=== PATIENT | male | born 1975 | race Caucasian/White ===

== ENCOUNTER 2018-02-01 09:04 | Emergency (ER) | payer MEDICAID ==
[~2018-02-01] VITALS: Ht 190.5 cm; Wt 180.0 kg
[2018-02-01] MEDS ORDERED: CLIN300C85 PO (10:02)
[2018-02-01] MEDS ORDERED: ibuprofen tablet 400 MG TABLET PO ONE (10:10)
[2018-02-01 10:18] VITALS: BP 124/78
== END 2018-02-01 10:20 | disposition home or self-care (01) ==
LOC: ER 09:05
DX: L02.415 Cutaneous abscess of right lower limb (principal); F12.90 Cannabis use, unspecified, uncomplicated; F15.90 Other stimulant use, unspecified, uncomplicated; Z88.8 Allergy status to other drugs, medicaments and biological substances; Z59.0 Homelessness
CPT/HCPCS: 99284

== ENCOUNTER 2018-09-11 12:23 | Emergency (ER) | payer MEDICAID ==
[~2018-09-11] VITALS: Ht 190.5 cm; Wt 75.6 kg
[~2018-09-11 12:23] MED LIST: CLIN-96 PO
[2018-09-11 12:58] VITALS: BP 128/79
== END 2018-09-11 14:09 | disposition home or self-care (01) ==
LOC: ER 12:23
DX: R00.0 Tachycardia, unspecified (principal); F12.90 Cannabis use, unspecified, uncomplicated; F15.90 Other stimulant use, unspecified, uncomplicated; Z00.00 Encounter for general adult medical examination without abnormal findings; Z86.19 Personal history of other infectious and parasitic diseases; Z59.0 Homelessness; Z88.8 Allergy status to other drugs, medicaments and biological substances; Z79.899 Other long term (current) drug therapy
CPT/HCPCS: 99281

== ENCOUNTER 2019-11-07 02:31 | Emergency (ER) | payer MEDICAID ==
[~2019-11-07] VITALS: Ht 190.5 cm; Wt 90.9 kg
[~2019-11-07 02:31] MED LIST changes: -CLIN-96 PO; +CLIN-97 PO
[2019-11-07] MEDS ORDERED: normal saline 1000ML IV soln IV ONE (03:40)
[2019-11-07] MEDS ORDERED: clindamycin phosphate inj 600 MG in normal saline 50ml IV soln 50 ML IV ONE (03:50)
[2019-11-07] MEDS ORDERED: clindamycin 600mg/D5W 50ml 50 ML IV ONE (03:55)
[2019-11-07 04:35] LABS: BASOPHILS # (AUTO) 0.1 X10'3 (0-0.2); BASOPHILS % (AUTO) 0.8 % (0-1); EOSINOPHILS # (AUTO) 0.4 X10'3 (0-0.9); EOSINOPHILS % (AUTO) 3.5 % (0-6); HEMATOCRIT 41.5 % (42.0-52.0); HEMOGLOBIN 14.1 g/dl (14.0-17.9); LYMPHOCYTES # (AUTO) 2.4 X10'3 (1.1-4.8); LYMPHOCYTES % (AUTO) 19.6 % (21-51); MEAN CORPUSCULAR HGB CONC 33.9 g/dL (33.0-36.5); MEAN CORPUSCULAR VOLUME 94.2 FL (78-98); MEAN PLATELET VOLUME 8.1 FL (7.4-10.4); MONOCYTES # (AUTO) 1.6 X10'3 (0-0.9); MONOCYTES % (AUTO) 13.1 % (2-12); NEUTROPHILS # (AUTO) 7.9 X10'3 (1.8-7.7); PLATELET COUNT 286 X10'3 (140-440); RED BLOOD COUNT 4.41 X10'6 (4.70-6.10); RED CELL DISTRIBUTION WIDTH 14.1 % (11.5-14.5); WHITE BLOOD COUNT 12.5 X10'3 (4.5-11.0)
[2019-11-07 05:06] LABS: ALANINE AMINOTRANSFERASE 153 U/L (12-78); ALBUMIN 3.5 G/DL (3.4-5.0); ALBUMIN/GLOBULIN RATIO 0.9 (1.1-1.5); ALKALINE PHOSPHATASE 87 IU/L (46-116); ANION GAP 10 (8-16); ASPARTATE AMINO TRANSFERASE 50 U/L (10-37); BILIRUBIN,TOTAL 0.5 MG/DL (0.1-1.0); BLOOD UREA NITROGEN 13 MG/DL (7-18); CALCIUM 9.1 MG/DL (8.5-10.1); CHLORIDE 102 MMOL/L (99-107); CREATININE 1.18 MG/DL (0.60-1.10); GLUCOSE 92 MG/DL (70-104); MAGNESIUM 2.1 MG/DL (1.5-2.4); POTASSIUM 4.3 MMOL/L (3.5-5.1); SODIUM 136 MMOL/L (135-145); TOTAL CARBON DIOXIDE 23.7 MMOL/L (24-32); TOTAL PROTEIN 7.6 G/DL (6.4-8.2); eGFR 67 ML/MIN
[2019-11-07 05:22] LABS: CLARITY,URINE CLEAR (Clear); COLOR,URINE AMBER (Yellow); GLUCOSE, URINE NEGATIVE (Neg); KETONES,URINE NEGATIVE (Neg); LEUKOCYTE ESTERASE ,URINE NEGATIVE (Neg); NITRITES, URINE NEGATIVE (Neg); OCCULT BLOOD,URINE NEGATIVE (Neg); PROTEIN,URINE NEGATIVE (Neg)
[2019-11-07 05:24] LABS: UA COLLECTION TYPE URINAL
[2019-11-07 05:32] LABS: URINE AMPHETAMINE SCREEN POSITIVE (Neg); URINE BARBITUATE SCREEN NEGATIVE (Neg); URINE BENZODIAZEPINES SCREEN NEGATIVE (Neg); URINE CANNABINOID SCREEN POSITIVE (Neg); URINE COCAINE SCREEN NEGATIVE (Neg); URINE METHADONE SCREEN NEGATIVE (Neg); URINE OPIATE SCREEN NEGATIVE (Neg); URINE PHENCYCLIDINE SCREEN NEGATIVE (Neg)
[2019-11-07] MEDS ORDERED: CLIN150C8 PO (05:57)
[2019-11-07 06:02] VITALS: BP 111/80
[2019-11-07] MEDS ORDERED: LIDOcaine 1% W/epiNEPHrine 1:100,000 20ml vial ONE (08:00)
== END 2019-11-07 06:15 | disposition home or self-care (01) ==
LOC: ER 02:32
DX: L02.414 Cutaneous abscess of left upper limb (principal); M79.89 Other specified soft tissue disorders; F32.9 Major depressive disorder, single episode, unspecified; F20.9 Schizophrenia, unspecified; F17.200 Nicotine dependence, unspecified, uncomplicated; F12.90 Cannabis use, unspecified, uncomplicated; F15.90 Other stimulant use, unspecified, uncomplicated; Z86.19 Personal history of other infectious and parasitic diseases; Z72.89 Other problems related to lifestyle; Z59.0 Homelessness; Z88.8 Allergy status to other drugs, medicaments and biological substances; Z79.2 Long term (current) use of antibiotics
CPT/HCPCS: 10060; 36415; 80053; 80305; 81003; 83605; 83735; 84145; 85025; 87040; 96365; 99284; J7030; J3490

== ENCOUNTER → 2020-03-06 | Emergency (ER) | payer MEDICAID ==
[~2020-03-06] VITALS: Ht 190.5 cm; Wt 90.9 kg
[~2020-03-06] MED LIST changes: +CLIN150C8 PO
[2020-03-06 21:47] VITALS: BP 98/62
--- NOTE | 2020-03-06 22:02 | NUR ---
PT HAS A BOTTLE OF BOOZE WITH HIM. PT ADVISED THAT HE NEEDS TO LEAVE HIS BOOZE OUTSIDE. HE SAID "OK I'LL BE RIGHT BACK" BUT DIDN'T RETURN.
== END | disposition left against medical advice (07) ==
LOC: ER 21:29
DX: R05 Cough (principal); R09.89 Other specified symptoms and signs involving the circulatory and respiratory systems; Z53.21 Procedure and treatment not carried out due to patient leaving prior to being seen by health care provider

== ENCOUNTER 2020-03-15 15:50 | Outpatient (CLI) | payer MEDICAID | END 2020-03-15 23:59 | disposition home or self-care (01) | LOC: RAD 15:50 | DX: Z79.899 Other long term (current) drug therapy (principal) | CPT/HCPCS: 93005 ==

== ENCOUNTER 2020-03-30 06:49 | Emergency (ER) | payer MEDICAID ==
[~2020-03-30] VITALS: Ht 190.5 cm; Wt 90.9 kg
== END 2020-03-30 07:41 | disposition home or self-care (01) ==
LOC: ER 06:49
DX: J06.9 Acute upper respiratory infection, unspecified (principal); R05 Cough; R09.89 Other specified symptoms and signs involving the circulatory and respiratory systems; R06.02 Shortness of breath; Z20.828 Contact with and (suspected) exposure to other viral communicable diseases; F32.9 Major depressive disorder, single episode, unspecified; F20.9 Schizophrenia, unspecified; F12.90 Cannabis use, unspecified, uncomplicated; F15.90 Other stimulant use, unspecified, uncomplicated; Z86.19 Personal history of other infectious and parasitic diseases; Z72.89 Other problems related to lifestyle; Z59.0 Homelessness; Z88.8 Allergy status to other drugs, medicaments and biological substances; Z79.2 Long term (current) use of antibiotics
CPT/HCPCS: 36415; 87635; 99283

== ENCOUNTER 2020-10-27 20:31 | Emergency (ER) | payer MEDICAID ==
[~2020-10-27] VITALS: Ht 182.9 cm; Wt 90.9 kg
[2020-10-27] MEDS ORDERED: normal saline 1000ML IV soln IVB ONE (20:40)
[2020-10-27 20:54] LABS: BASOPHILS # (AUTO) 0.1 X10'3 (0-0.2); BASOPHILS % (AUTO) 1.4 % (0-1); EOSINOPHILS # (AUTO) 0.7 X10'3 (0-0.9); EOSINOPHILS % (AUTO) 7.4 % (0-6); HEMATOCRIT 46.7 % (42.0-52.0); HEMOGLOBIN 15.8 g/dl (14.0-17.9); LYMPHOCYTES # (AUTO) 3.9 X10'3 (1.1-4.8); LYMPHOCYTES % (AUTO) 42.7 % (21-51); MEAN CORPUSCULAR HEMOGLOBIN 32.2 PG (27.0-31.0); MEAN CORPUSCULAR HGB CONC 33.8 g/dL (33.0-36.5); MEAN CORPUSCULAR VOLUME 95.3 FL (78-98); MEAN PLATELET VOLUME 7.6 FL (7.4-10.4); MONOCYTES # (AUTO) 0.6 X10'3 (0-0.9); NEUTROPHILS # (AUTO) 3.8 X10'3 (1.8-7.7); NEUTROPHILS % (AUTO) 41.5 % (42-75); PLATELET COUNT 354 X10'3 (140-440); RED CELL DISTRIBUTION WIDTH 13.4 % (11.5-14.5); WHITE BLOOD COUNT 9.1 X10'3 (4.5-11.0)
[2020-10-27 21:05] LABS: ALANINE AMINOTRANSFERASE 108 U/L (12-78); ALBUMIN 3.8 G/DL (3.4-5.0); ALBUMIN/GLOBULIN RATIO 0.9 (1.1-1.5); ALKALINE PHOSPHATASE 80 IU/L (46-116); ANION GAP 18 (8-16); ASPARTATE AMINO TRANSFERASE 62 U/L (10-37); BILIRUBIN,TOTAL 0.4 MG/DL (0.1-1.0); BLOOD UREA NITROGEN 13 MG/DL (7-18); BUN/CREATININE RATIO 7.6 (5.4-32.0); CALCIUM 8.5 MG/DL (8.5-10.1); CHLORIDE 103 MMOL/L (99-107); CREATININE 1.72 MG/DL (0.60-1.10); GLUCOSE 307 MG/DL (70-104); POTASSIUM 3.7 MMOL/L (3.5-5.1); SODIUM 141 MMOL/L (135-145); TOTAL CARBON DIOXIDE 19.9 MMOL/L (24-32); TOTAL PROTEIN 7.9 G/DL (6.4-8.2); eGFR 43 ML/MIN
[2020-10-27 21:17] LABS: CKMB RELATIVE INDEX 1.8 RATIO (0-2.5); CREATINE KINASE 290 U/L (39-308); ETHANOL < 0.010 GM/DL (0.0-0.010); TROPONIN I < 0.04 NG/ML (0.0-0.05)
[2020-10-27 21:28] LABS: LACTIC SEPSIS 5.9 MMOL/L (0.4-2.0)
[2020-10-27] MEDS ORDERED: normal saline 1000ML IV soln IV ONE (21:30)
[2020-10-27 22:09] LABS: HEMOGLOBIN A1C 5.6 % (4.5-6.2)
--- NOTE | 2020-10-27 23:31 | NUR ---
sats dropping to 87% - sternal rub elicits minimal response. RR down to 8 - MD aware and order for 2mg Narcan IV ordered.
[2020-10-27] MEDS ORDERED: naloxone 2mg/2ml inj ONE (23:34)
[2020-10-27 23:51] LABS: CLARITY,URINE CLEAR (Clear); COLOR,URINE YELLOW (Yellow); GLUCOSE, URINE NEGATIVE (Neg); KETONES,URINE NEGATIVE (Neg); LEUKOCYTE ESTERASE ,URINE NEGATIVE (Neg); NITRITES, URINE NEGATIVE (Neg); OCCULT BLOOD,URINE NEGATIVE (Neg); PROTEIN,URINE 30 mg/dl (Neg)
[2020-10-28 00:04] LABS: UA COLLECTION TYPE URINAL
[2020-10-28 00:06] LABS: RBC,URINE NONE SEEN /HPF (0-2); WBC,URINE NONE SEEN /HPF (0-4)
[2020-10-28 00:07] LABS: BACTERIA,URINE NONE SEEN /HPF (Neg); HYALINE CASTS 0-3 /LPF (NEGATIVE); MUCUS STRANDS FEW /LPF (Neg); SQUAMOUS EPITHELIAL CELL,UR FEW /LPF (FEW)
[2020-10-28 01:34] LABS: URINE AMPHETAMINE SCREEN POSITIVE (Neg); URINE BARBITUATE SCREEN NEGATIVE (Neg); URINE BENZODIAZEPINES SCREEN NEGATIVE (Neg); URINE CANNABINOID SCREEN POSITIVE (Neg); URINE COCAINE SCREEN NEGATIVE (Neg); URINE METHADONE SCREEN NEGATIVE (Neg); URINE OPIATE SCREEN NEGATIVE (Neg); URINE PHENCYCLIDINE SCREEN NEGATIVE (Neg)
--- NOTE | 2020-10-28 01:50 | NUR ---
Pt SaO2 dropped to 81% with good wave form on monitor. Another dose of narcan given. Pt now awake and able to take deep breaths
[2020-10-28] MEDS ORDERED: naloxone 2mg/2ml inj IV STA (02:18)
--- NOTE | 2020-10-28 03:53 | NUR ---
PT PULLED OUT IV - I ATTEMPTED IV X 3 TIMES. WAS ABLE TO CANNULATE THE VEIN ALL 3 TIMES WITH GOOD FLASH BUT THEY WILL NOT THREAD.
[2020-10-28] MEDS ORDERED: naloxone 2mg/2ml inj ONE (06:12)
[2020-10-28 07:20] VITALS: BP 105/64
--- NOTE | 2020-10-28 09:07 | NUR ---
PT AWAKE EATING CRACKERS AND MILK
== END 2020-10-28 09:34 | disposition home or self-care (01) ==
LOC: ER 20:32
DX: R41.82 Altered mental status, unspecified (principal); E86.0 Dehydration; N18.9 Chronic kidney disease, unspecified; Z86.19 Personal history of other infectious and parasitic diseases; Z59.0 Homelessness; Z72.89 Other problems related to lifestyle; Z88.8 Allergy status to other drugs, medicaments and biological substances; Z79.2 Long term (current) use of antibiotics
CPT/HCPCS: 36415; 70450; 71045; 80053; 80305; 80320; 81001; 82140; 82550; 82553; 82948; 83036; 83605; 84484; 85025; 87040; 93005; 96361; 96374; 96376; 99285; J2310; J7030; 81003

== ENCOUNTER 2020-12-14 23:40 | Emergency (ER) | payer MEDICAID ==
[~2020-12-14] VITALS: Ht 190.5 cm; Wt 86.3 kg
[2020-12-14 23:51] VITALS: BP 114/69
[2020-12-15] MEDS ORDERED: OLAN15TA3 PO (00:02)
== END 2020-12-15 05:07 | disposition left against medical advice (07) ==
LOC: ER 23:41
DX: R10.30 Lower abdominal pain, unspecified (principal); Z53.21 Procedure and treatment not carried out due to patient leaving prior to being seen by health care provider

== ENCOUNTER 2021-01-02 01:16 | Inpatient (IN) | payer MEDICAID ==
[~2021-01-02] VITALS: Ht 190.5 cm; Wt 72.6 kg
[2021-01-02] VITALS (8 sets, daily range): BP systolic 120–144; BP diastolic 74–98
[~2021-01-02 01:16] MED LIST changes: +OLAN15TA3 PO
[2021-01-02] MEDS ORDERED: iohexol 300mg/ml 100ml inj. ONE (03:23)
[2021-01-02 03:54] LABS: BASOPHILS % (AUTO) 0.4 % (0-1); EOSINOPHILS # (AUTO) 0.1 X10'3 (0-0.9); EOSINOPHILS % (AUTO) 1.1 % (0-6); HEMATOCRIT 52.8 % (42.0-52.0); HEMOGLOBIN 17.8 g/dl (14.0-17.9); LYMPHOCYTES # (AUTO) 1.8 X10'3 (1.1-4.8); LYMPHOCYTES % (AUTO) 16.3 % (21-51); MEAN CORPUSCULAR HEMOGLOBIN 32.2 PG (27.0-31.0); MEAN CORPUSCULAR HGB CONC 33.8 g/dL (33.0-36.5); MEAN CORPUSCULAR VOLUME 95.3 FL (78-98); MEAN PLATELET VOLUME 7.6 FL (7.4-10.4); MONOCYTES # (AUTO) 0.8 X10'3 (0-0.9); MONOCYTES % (AUTO) 7.2 % (2-12); NEUTROPHILS # (AUTO) 8.3 X10'3 (1.8-7.7); PLATELET COUNT 270 X10'3 (140-440); RED BLOOD COUNT 5.55 X10'6 (4.70-6.10); RED CELL DISTRIBUTION WIDTH 13.1 % (11.5-14.5); WHITE BLOOD COUNT 11.1 X10'3 (4.5-11.0)
[2021-01-02] MEDS ORDERED: ondansetron/PF 4mg/2ml inj IV ONE (04:55)
[2021-01-02 05:18] LABS: ALBUMIN 4.1 G/DL (3.4-5.0); ANION GAP 12 (8-16); BLOOD UREA NITROGEN 14 MG/DL (7-18); BUN/CREATININE RATIO 14.3 (5.4-32.0); CALCIUM 9.4 MG/DL (8.5-10.1); CHLORIDE 101 MMOL/L (99-107); CREATININE 0.98 MG/DL (0.60-1.10); GLUCOSE 114 MG/DL (70-104); POTASSIUM 4.2 MMOL/L (3.5-5.1); SODIUM 141 MMOL/L (135-145); TOTAL CARBON DIOXIDE 28.4 MMOL/L (24-32); eGFR 82 ML/MIN
[2021-01-02] MEDS ORDERED: potassium Cl 40MEQ/1/2NS 520ml 520 ML IV PRN ×2 (06:15)
[2021-01-02] MEDS ORDERED: ondansetron/PF 4mg/2ml inj IV PRN ×2 (06:15→12:45)
[2021-01-02] MEDS ORDERED: magnesium Cl slow-release 64mg tablet PO PRN (06:15)
[2021-01-02] MEDS ORDERED: magnesium 4gm in 100ml NS 100 ML IV PRN (06:15)
[2021-01-02] MEDS ORDERED: normal saline 1000ml 1,000 ML IV SCH (06:15)
[2021-01-02] MEDS ORDERED: acetaminophen 325mg tablet PO PRN (06:15)
[2021-01-02] MEDS ORDERED: potassium Cl 20 mEq SR tablet PO PRN ×2 (06:15)
[2021-01-02] MEDS ORDERED: morphine 2 MG/ML inj. syringe IV PRN ×2 (06:15→12:45)
[2021-01-02] MEDS ORDERED: magnesium 2GM in 50ml NS 50 ML IV PRN (06:15)
[2021-01-02] MEDS ORDERED: K and/or MAG REPLACEMENT MC SCH (08:00)
[2021-01-02] MEDS ORDERED: ceFOXitin 2GM-NS 100mL ADDvant 100 ML IV ONE (12:05)
[2021-01-02] MEDS ORDERED: proCHLORperazine 10 MG/2 ml inj IV PRN (12:45)
[2021-01-02] MEDS ORDERED: ringers solution, lacted 1,000 ML IV SCH (12:45)
[2021-01-02] MEDS ORDERED: morphine 4 MG/ML inj SYRINge IV PRN (12:45)
[2021-01-02] MEDS ORDERED: meperidine/PF 25mg/ml syringe IV PRN ×3 (12:45)
[2021-01-02] MEDS ORDERED: midazolam 1 mg/ML 2ml injection ONE (12:45)
[2021-01-02] MEDS ORDERED: fentaNYL /PF 50mcg/ml 5ml ampule ONE (12:46)
[2021-01-02] MEDS ORDERED: sevoflurane 250ml liquid IH ONE (12:49)
[2021-01-02] MEDS ORDERED: LIDOcaine 2% (20mg/ml) 5ml vial ONE (12:53)
[2021-01-02] MEDS ORDERED: propofol inj 20 ML IV ONE (12:53)
[2021-01-02] MEDS ORDERED: rocuronium 10mg/ml inj IV ONE (12:53)
[2021-01-02] MEDS ORDERED: ondansetron/PF 4mg/2ml inj ONE (13:09)
[2021-01-02] MEDS ORDERED: dexamethasone sod phosphate 4mg/ml inj. ONE (13:09)
[2021-01-02] MEDS ORDERED: BUPIVAcaine 0.5% inj/PF 30 ML ONE (13:48)
[2021-01-02] MEDS ORDERED: sugammadex 200mg/2ml injection IV ONE (14:08)
[2021-01-02] MEDS ORDERED: BUPIVACAINE liposomal/PF 13.3 MG/ML vial IM ONE (14:10)
--- NOTE | 2021-01-02 14:32 | NUR ---
Received from OR via SURGICAL BED , accompanied by Anesthesiologist JAMIR and report given by Anesthesiolgist. PATIENT WITH 20G PIV IN RIGHT UE RUNNING LR AT 100. DENIES PAIN AT THIS TIME. LOW ABDOMINAL DRESSING IS CDI AND VSS. ICE APPLIED TO INCISION AREA PER MD DRAPER REQUEST. SCDS DONNED. 10L MASK ON WITH 100% SATURATIONS. Addendum: 01/02/21 at 1450 by Erick Law RN, RN Amended: Links added.
[2021-01-02] MEDS ORDERED: HYDROcodone/acetaminophen 10/325mg tab PO PRN (14:45)
[2021-01-02] MEDS ORDERED: potassium CL 20mEq in D5-1/2NS 1,000 ML IV SCH (14:45)
[2021-01-02] MEDS ORDERED: haloperidol lactate 5mg/ml inj IM PRN (14:50)
[2021-01-02] MEDS ORDERED: haloperidol 5mg tablet PO PRN (14:50)
[2021-01-02] MEDS ORDERED: LORazepam 2 mg/ml vial IV PRN (14:50)
--- NOTE | 2021-01-02 15:32 | NUR ---
ALL DC CRITERIA FOR THE FLOOR HAS BEEN MET. VSS. DENIES PAIN. BLOCK TO ABDOMEN INTACT. DRESSING TO ABDOMEN IS CDI. VSS. REPORT GIVEN. BED LOW CALL LIGHT PRESENT AND RN PRESENT TO ACCEPT AND ASSESS PATIENT. CARE TURNED OVER AFTER REPORT GIVEN. Addendum: 01/02/21 at 1542 by Erick Law RN RN Amended: Links added.
--- NOTE | 2021-01-02 15:51 | NUR ---
Paged Dr. Gutierrez PAGER ID: [phone] MESSAGE: Surgical [facility] BUNN ext [phone]. RE: Roverto Crane. Patient already here from PACU. He had inguinal hernia repair. Do you still want the CT scan abdomen with PO contrast done tomorrow?
--- NOTE | 2021-01-02 15:52 | NUR ---
Per Dr. Gutierrez there is no need for CT scan abdomen as patient already had surgery.
[2021-01-02] MEDS ORDERED: ceFOXitin inj 1,000 MG in normal saline 100ml IV soln 100 ML IV SCH (16:00)
--- NOTE | 2021-01-02 17:14 | NUR ---
Pharmacist Cody was contacted today regarding patient's allergy to Haldol
--- NOTE | 2021-01-02 17:45 | NUR ---
Patient got up from his bed, walked to the hallway. Patient was not connected to his IVF running and did not used the call light to call for help. Patient was assisted back to his room, reminded to use call light and not to disconnect himself from the IV fluid running. Bed alarm turned on and IV tubing was changed.
--- NOTE | 2021-01-02 18:50 | NUR ---
message left for Dr Gutierrez to notify him of pt going AMA; pt pulled PIV out on own (site clear); pt stated he's stable & feels good, that he needed to leave; advised pt it is against medical advise to leave; pt agreed to sign AMA paper; pt dressed & discharged with belongings, via w/c; Dr Huang notified.
[2021-01-02] MEDS ORDERED: diatr meglu/diatrizoate 30ml oral sol.-(3 dose) bottle PO SCH (21:00)
[2021-01-02] MEDS ORDERED: OLANZAPINE 5 MG TABLET PO SCH (21:00)
[2021-01-03] MEDS ORDERED: multivitamins, therapeutics tablet PO SCH (08:00)
[2021-01-03] MEDS ORDERED: thiamine 100mg tablet PO SCH (08:00)
[2021-01-03] MEDS ORDERED: folic acid 1mg tablet PO SCH (08:00)
[2021-01-03] MEDS ORDERED: OLAN10TA73 PO (10:50)
[2021-01-04] MEDS ORDERED: LORazepam 1 MG tablet PO PRN (14:50)
[2021-01-04] MEDS ORDERED: LORazepam 2 mg/ml vial IV PRN (14:50)
[2021-01-06] MEDS ORDERED: LORazepam 2 mg/ml vial IV PRN (14:50)
[2021-01-06] MEDS ORDERED: LORazepam 1 MG tablet PO PRN (14:50)
== END 2021-01-02 18:51 | disposition left against medical advice (07) | DRG 228 ==
LOC: ER 01:17 → ED HOLD 06:14 → SUR 3N 15:41
PROVIDERS: ADMIT Internal Medicine; ATTEND Family Medicine
PROC: BW211ZZ Computerized Tomography (CT Scan) of Abdomen and Pelvis using Low Osmolar Contrast (ICD-10-PCS; 2021-01-02)
PROC: 3E0T3BZ Introduction of Anesthetic Agent into Peripheral Nerves and Plexi, Percutaneous Approach (ICD-10-PCS; 2021-01-02)
PROC: 0YU50JZ Supplement Right Inguinal Region with Synthetic Substitute, Open Approach (ICD-10-PCS; principal; 2021-01-02 12:49)
DX: K40.30 Unilateral inguinal hernia, with obstruction, without gangrene, not specified as recurrent (principal); B18.2 Chronic viral hepatitis C; F20.9 Schizophrenia, unspecified; Z53.29 Procedure and treatment not carried out because of patient's decision for other reasons; F10.20 Alcohol dependence, uncomplicated; Z20.822 Contact with and (suspected) exposure to COVID-19; F17.200 Nicotine dependence, unspecified, uncomplicated; F32.9 Major depressive disorder, single episode, unspecified; F12.90 Cannabis use, unspecified, uncomplicated; Z59.0 Homelessness; Z88.8 Allergy status to other drugs, medicaments and biological substances; Z79.899 Other long term (current) drug therapy; Z91.19 Patient's noncompliance with other medical treatment and regimen
CPT/HCPCS: 36415; 74177; 80048; 85025; 87635; 96374; 99285; A4215; A4618; A6258; A7000; C1758; C1781; C9290; C9399; C9803; G0378; J0694; J1100; J2001; J2250; J2405; J2704; J3010; J7030; J7120; Q9967

== ENCOUNTER 2021-01-02 19:56 | Emergency (ER) | payer MEDICAID ==
[~2021-01-02] VITALS: Ht 188 cm; Wt 74.8 kg
[2021-01-02 20:08] VITALS: BP 135/76
[2021-01-03] MEDS ORDERED: OLAN10TA73 PO (10:50)
[2021-01-04] MEDS ORDERED: NICO-687 TD (15:06)
[2021-01-04] MEDS ORDERED: HYDR-3972 PO (15:06)
== END 2021-01-03 01:11 | disposition left against medical advice (07) ==
LOC: ER 19:56
DX: Z53.21 Procedure and treatment not carried out due to patient leaving prior to being seen by health care provider (principal)

== ENCOUNTER 2021-01-03 07:15 | Inpatient (IN) | payer MEDICAID ==
[~2021-01-03] VITALS: Ht 190.5 cm; Wt 71.6 kg
[~2021-01-03 07:15] MED LIST changes: -CLIN-97 PO; -CLIN150C8 PO
[2021-01-03] MEDS ORDERED: ipratropium/albuterol 3ml nebule NEB PRN (08:20)
[2021-01-03] MEDS ORDERED: ondansetron/PF 4mg/2ml inj IV PRN (08:20)
[2021-01-03] MEDS ORDERED: acetaminophen 325mg tablet PO PRN ×2 (08:20)
[2021-01-03] MEDS ORDERED: magnesium hydroxide 30ml (MOM) UD suspension PO PRN (08:20)
[2021-01-03] MEDS ORDERED: haloperidol lactate 5mg/ml inj IM PRN (08:20)
[2021-01-03] MEDS ORDERED: HYDROcodone/acetaminophen 5mg/325mg tablet PO PRN (08:20)
[2021-01-03] MEDS ORDERED: potassium Cl 20 mEq SR tablet PO PRN ×2 (08:20)
[2021-01-03] MEDS ORDERED: magnesium 2GM in 50ml NS 50 ML IV PRN (08:20)
[2021-01-03] MEDS ORDERED: haloperidol 5mg tablet PO PRN (08:20)
[2021-01-03] MEDS ORDERED: potassium Cl 40MEQ/1/2NS 520ml 520 ML IV PRN ×2 (08:20)
[2021-01-03] MEDS ORDERED: LORazepam 2 mg/ml vial IV PRN (08:20)
[2021-01-03] MEDS ORDERED: magnesium 4gm in 100ml NS 100 ML IV PRN (08:20)
[2021-01-03] MEDS ORDERED: mag hydrox/Alum hydrox/simeth 30ml oral suspension PO PRN (08:20)
[2021-01-03] MEDS ORDERED: HYDROcodone/acetaminophen 10/325mg tab PO PRN (08:20)
[2021-01-03] MEDS ORDERED: albuterol 2.5 MG/3 ML nebule NEB PRN (08:20)
[2021-01-03] MEDS ORDERED: ceFOXitin 1 GM/D5W 50mL IVPB 50 ML IV SCH (08:51)
[2021-01-03] MEDS ORDERED: NORMAL SALINE IV SCH ×4 (09:04)
[2021-01-03] MEDS ORDERED: CEFOXITIN IV SCH ×4 (09:04)
[2021-01-03 10:25] LABS: BASOPHILS % (AUTO) 0.2 % (0-1); EOSINOPHILS # (AUTO) 0.1 X10'3 (0-0.9); EOSINOPHILS % (AUTO) 0.6 % (0-6); HEMATOCRIT 45.7 % (42.0-52.0); HEMOGLOBIN 15.6 g/dl (14.0-17.9); LYMPHOCYTES # (AUTO) 3.1 X10'3 (1.1-4.8); LYMPHOCYTES % (AUTO) 19.5 % (21-51); MEAN CORPUSCULAR HEMOGLOBIN 31.3 PG (27.0-31.0); MEAN CORPUSCULAR HGB CONC 34.1 g/dL (33.0-36.5); MEAN CORPUSCULAR VOLUME 91.8 FL (78-98); MEAN PLATELET VOLUME 7.6 FL (7.4-10.4); MONOCYTES # (AUTO) 1.8 X10'3 (0-0.9); MONOCYTES % (AUTO) 11.4 % (2-12); NEUTROPHILS # (AUTO) 10.7 X10'3 (1.8-7.7); NEUTROPHILS % (AUTO) 68.3 % (42-75); PLATELET COUNT 310 X10'3 (140-440); RED BLOOD COUNT 4.98 X10'6 (4.70-6.10); WHITE BLOOD COUNT 15.6 X10'3 (4.5-11.0)
[2021-01-03] MEDS ORDERED: OLAN10TA73 PO (10:50)
[2021-01-03 11:07] LABS: ALANINE AMINOTRANSFERASE 60 U/L (12-78); ALBUMIN 3.4 G/DL (3.4-5.0); ALBUMIN/GLOBULIN RATIO 0.9 (1.1-1.5); ALKALINE PHOSPHATASE 71 IU/L (46-116); ANION GAP 6 (8-16); ASPARTATE AMINO TRANSFERASE 20 U/L (10-37); BILIRUBIN,TOTAL 0.4 MG/DL (0.1-1.0); BLOOD UREA NITROGEN 11 MG/DL (7-18); CALCIUM 8.7 MG/DL (8.5-10.1); CHLORIDE 103 MMOL/L (99-107); CREATININE 0.92 MG/DL (0.60-1.10); GLUCOSE 95 MG/DL (70-104); POTASSIUM 4.1 MMOL/L (3.5-5.1); SODIUM 137 MMOL/L (135-145); TOTAL CARBON DIOXIDE 27.8 MMOL/L (24-32); TOTAL PROTEIN 7.3 G/DL (6.4-8.2); eGFR 89 ML/MIN
[2021-01-03] MEDS: folic acid 1mg tablet PO SCH (13:21)
[2021-01-03] MEDS: ceFOXitin inj 1,000 MG in normal saline 100ml IV soln 100 ML IV SCH ×2 (13:21→16:00)
[2021-01-03] MEDS: thiamine 100mg tablet PO SCH (13:21)
[2021-01-03] MEDS: nicotine 21mg patch - 24 hr TD SCH (13:22)
[2021-01-03] MEDS: normal saline 1000ml 1,000 ML IV SCH ×2 (13:22→21:31)
[2021-01-03] MEDS ORDERED: diatr meglu/diatrizoate 30ml oral sol.-(3 dose) bottle ONE (13:51)
[2021-01-03] MEDS: diatr meglu/diatrizoate 30ml oral sol.-(3 dose) bottle PO SCH ×3 (14:03→19:47)
[2021-01-03] MEDS ORDERED: ceFOXitin inj 1,000 MG in normal saline 100ml IV soln 100 ML IV SCH (16:00)
--- NOTE | 2021-01-03 17:03 | NUR ---
emily mother [phone]
--- NOTE | 2021-01-03 17:19 | NUR ---
Patient in room [facility] 346A. I have received report from ONI DENIS and had the opportunity to ask questions and assume patient care.
[2021-01-03 17:50] VITALS: BP 116/76
--- NOTE | 2021-01-03 19:00 | NUR ---
Problems reprioritized. Patient report given, questions answered & plan of care reviewed with STARR CLEMENTS RN.
--- NOTE | 2021-01-03 19:01 | NUR ---
Patient in room [facility] 346. I have received report from SHARON BUNN and had the opportunity to ask questions and assume patient care.
[2021-01-03 20:00] VITALS: BP 119/78
[2021-01-03] MEDS ORDERED: enoxaparin 40mg/0.4ml syringe SQ SCH (20:00)
[2021-01-03] MEDS: K and/or MAG REPLACEMENT MC SCH (20:00)
[2021-01-03] MEDS ORDERED: olanzapine 10mg tablet PO SCH (21:00)
[2021-01-03] MEDS: docusate sod 100mg capsule PO SCH (21:32)
[2021-01-04 00:05] VITALS: BP 91/47
[2021-01-04] MEDS: ceFOXitin inj 1,000 MG in normal saline 100ml IV soln 100 ML IV SCH ×2 (00:29→09:35)
[2021-01-04] MEDS: normal saline 1000ml 1,000 ML IV SCH ×2 (04:20→14:20)
[2021-01-04 06:07] LABS: BASOPHILS % (AUTO) 0.4 % (0-1); EOSINOPHILS # (AUTO) 0.2 X10'3 (0-0.9); EOSINOPHILS % (AUTO) 1.6 % (0-6); HEMATOCRIT 43.8 % (42.0-52.0); HEMOGLOBIN 14.9 g/dl (14.0-17.9); LYMPHOCYTES # (AUTO) 3.7 X10'3 (1.1-4.8); LYMPHOCYTES % (AUTO) 32.4 % (21-51); MEAN CORPUSCULAR HEMOGLOBIN 31.5 PG (27.0-31.0); MEAN CORPUSCULAR VOLUME 92.8 FL (78-98); MEAN PLATELET VOLUME 7.9 FL (7.4-10.4); MONOCYTES # (AUTO) 1.4 X10'3 (0-0.9); MONOCYTES % (AUTO) 12.1 % (2-12); NEUTROPHILS # (AUTO) 6.1 X10'3 (1.8-7.7); NEUTROPHILS % (AUTO) 53.5 % (42-75); PLATELET COUNT 321 X10'3 (140-440); RED BLOOD COUNT 4.72 X10'6 (4.70-6.10); RED CELL DISTRIBUTION WIDTH 13.2 % (11.5-14.5); WHITE BLOOD COUNT 11.5 X10'3 (4.5-11.0)
[2021-01-04 06:24] LABS: ALANINE AMINOTRANSFERASE 50 U/L (12-78); ALBUMIN 3.1 G/DL (3.4-5.0); ALBUMIN/GLOBULIN RATIO 0.9 (1.1-1.5); ALKALINE PHOSPHATASE 66 IU/L (46-116); ANION GAP 7 (8-16); ASPARTATE AMINO TRANSFERASE 19 U/L (10-37); BILIRUBIN,TOTAL 0.5 MG/DL (0.1-1.0); BLOOD UREA NITROGEN 10 MG/DL (7-18); BUN/CREATININE RATIO 10.8 (5.4-32.0); CALCIUM 8.7 MG/DL (8.5-10.1); CHLORIDE 104 MMOL/L (99-107); CREATININE 0.93 MG/DL (0.60-1.10); GLUCOSE 91 MG/DL (70-104); LIPASE 120 U/L (73-393); MAGNESIUM 2.1 MG/DL (1.5-2.4); PHOSPHORUS 2.9 MG/DL (2.3-4.5); SODIUM 138 MMOL/L (135-145); TOTAL CARBON DIOXIDE 26.7 MMOL/L (24-32); TOTAL PROTEIN 6.7 G/DL (6.4-8.2); eGFR 87 ML/MIN
--- NOTE | 2021-01-04 06:28 | NUR ---
Patient in room [facility] 346. I have received report from Griselda BUNN and had the opportunity to ask questions and assume patient care.
--- NOTE | 2021-01-04 06:29 | NUR ---
Problems reprioritized. Patient report given, questions answered & plan of care reviewed with QUIANA RN.
[2021-01-04 08:00] VITALS: BP 108/60
[2021-01-04] MEDS: K and/or MAG REPLACEMENT MC SCH (08:00)
[2021-01-04] MEDS ORDERED: multivitamins, therapeutics tablet PO SCH (08:00)
[2021-01-04] MEDS: thiamine 100mg tablet PO SCH (09:36)
[2021-01-04] MEDS: docusate sod 100mg capsule PO SCH (09:36)
[2021-01-04] MEDS: folic acid 1mg tablet PO SCH (09:36)
[2021-01-04] MEDS: nicotine 21mg patch - 24 hr TD SCH (09:37)
[2021-01-04 11:00] VITALS: BP 115/71
[2021-01-04] MEDS ORDERED: HYDR-3972 PO (15:06)
[2021-01-04] MEDS ORDERED: NICO-687 TD (15:06)
--- NOTE | 2021-01-04 16:10 | NUR ---
PATIENT DISCHARGE TEACHING WAS DONE VERBALLY WITH PATIENT IN THE ROOM. PATIENT EXPRESSED VERBAL UNDERSTANDING OF DISCHARGE AND MEDICATIONS. IV TAKEN OUT AT THE TIME OF DISCHARGE AND CANULA WAS WHOLE AND INTACT UPON INSPECTION. PATIENT LEFT WITH ALL BELONGINGS AT DISCHARGE AND WILL FOLLOW UP WITH PRIMARY AND SURGEON AFTER APPOINTMENT WAS MADE.
[2021-01-04] MEDS ORDERED: lactobacillus rhamnosus 10,000 MMU CELLS/CAPSULE PO SCH (20:00)
[2021-01-05] MEDS ORDERED: LORazepam 2 mg/ml vial IV PRN (08:20)
[2021-01-05] MEDS ORDERED: LORazepam 1 MG tablet PO PRN (08:20)
[2021-01-07] MEDS ORDERED: LORazepam 1 MG tablet PO PRN (08:20)
[2021-01-07] MEDS ORDERED: LORazepam 2 mg/ml vial IV PRN (08:20)
== END 2021-01-04 16:10 | disposition home or self-care (01) | DRG 254 ==
LOC: ER 07:16 → ED HOLD 08:26 → SUR 3N 17:39
PROVIDERS: ADMIT Family Medicine; ATTEND Family Medicine
DX: K40.30 Unilateral inguinal hernia, with obstruction, without gangrene, not specified as recurrent (principal); B18.2 Chronic viral hepatitis C; D72.829 Elevated white blood cell count, unspecified; G89.18 Other acute postprocedural pain; F17.210 Nicotine dependence, cigarettes, uncomplicated; F20.9 Schizophrenia, unspecified; F12.90 Cannabis use, unspecified, uncomplicated; F32.9 Major depressive disorder, single episode, unspecified; Z82.0 Family history of epilepsy and other diseases of the nervous system; Z59.0 Homelessness; Z88.8 Allergy status to other drugs, medicaments and biological substances; Z79.899 Other long term (current) drug therapy; Z71.6 Tobacco abuse counseling
CPT/HCPCS: 36415; 74176; 80053; 83605; 83690; 83735; 84100; 85025; 85610; 87040; 87081; 94760; 97161; 99285; G0378; J0694; J1650; J7030; Q9963

== ENCOUNTER 2021-01-12 13:15 | Emergency (ER) | payer MEDICAID ==
[~2021-01-12] VITALS: Ht 190.5 cm; Wt 90.9 kg
[~2021-01-12 13:15] MED LIST changes: +HYDR-3972 PO; +NICO-687 TD; +OLAN10TA73 PO; -OLAN15TA3 PO
[2021-01-12 13:19] VITALS: BP 126/81
== END 2021-01-12 17:08 | disposition left against medical advice (07) ==
LOC: ER 13:15
DX: L02.414 Cutaneous abscess of left upper limb (principal); Z53.21 Procedure and treatment not carried out due to patient leaving prior to being seen by health care provider

== ENCOUNTER 2021-01-13 15:25 | Emergency (ER) | payer MEDICAID | END 2021-01-13 16:33 | disposition left against medical advice (07) | LOC: ER 15:26 | DX: Z48.00 Encounter for change or removal of nonsurgical wound dressing (principal); Z53.21 Procedure and treatment not carried out due to patient leaving prior to being seen by health care provider ==

== ENCOUNTER 2021-05-07 01:14 | Emergency (ER) | payer MEDICAID | END 2021-05-07 02:45 | disposition left against medical advice (07) | LOC: ER 01:15 | DX: Z53.21 Procedure and treatment not carried out due to patient leaving prior to being seen by health care provider (principal) ==